=== PATIENT | male | born 1935 | race Caucasian/White ===

== ENCOUNTER 2023-01-16 08:33 | Outpatient (CLI) | payer MEDICARE | END 2023-01-16 08:34 | disposition home or self-care (01) | LOC: CSHCT 08:33 | PROVIDERS: ATTEND Internal Medicine Cardiovascular Disease | DX: Z01.810 Encounter for preprocedural cardiovascular examination (principal); I48.0 Paroxysmal atrial fibrillation; I25.10 Atherosclerotic heart disease of native coronary artery without angina pectoris; I25.84 Coronary atherosclerosis due to calcified coronary lesion | CPT/HCPCS: 71275 ==